=== PATIENT | female | born 1975 | race Caucasian/White ===

== ENCOUNTER 2018-01-27 13:15 | Inpatient (IN) | payer OTHER ==
[2018-01-27] VITALS (9 sets, daily range): BP systolic 94–121; BP diastolic 55–81
[~2018-01-27] VITALS: Ht 147.3 cm; Wt 54.0 kg
--- OUTSIDE RECORDS SUMMARY | 2018-01-27 13:17 | XMS REPORT ---
Author Author [facility] Address Unknown Phone Unavailable Care Team Providers Care Band Tier Name Role Phone MS KENNYQASIMARIANNE Unavailable Unavailable Problems This patient has no known problems. Allergies, Adverse Reactions, Alerts This patient has no known allergies or adverse reactions. Medications This patient has no known medications. Results Test Description Test Time Test Comments Text Results Atomic Results Result Comments EKG 2017-12-30 09:54:00 QRS Interval: 86msQT Interval: 331msQTC Interval: 454msP [place]: 52degQRS [place]: 12degT Wave [place]: 58degP-R Interval: 192msecRR Interval: 531msecHeart Rate: 113bpmI 40 [place]: 50degT 40 [place]: -5degST [place]: 89degEKG Severity: - ABNORMAL ECG -REPORT:Sinus tachycardiaREPORT:Probable left atrial enlargementREPORT:Low voltage, extremity and precordial leads EKG 2017-12-30 09:54:00 QRS Interval: 83msQT Interval: 366msQTC Interval: 569msP [place]: 51degQRS [place]: -9degT Wave [place]: 43degP-R Interval: 136msecRR Interval: 414msecHeart Rate: 145bpmI 40 [place]: 86degT 40 [place]: -18degST [place]: - 53degEKG Severity: - ABNORMAL ECG -REPORT:Sinus tachycardiaREPORT:Left atrial enlargementREPORT:Anterior infarct, age indeterminateREPORT:Prolonged QT interval US VENO EXT. UNILAT 2017-12-05 17:58:[address] [id number] IMAGING REPORTPatient Name : Margaux REY of Service: [id number]: 42 Sex: F Order #: [id number] Room: [facility] 2SDOB: 1975 X-Ray Number: [id number] Record Number: [id number] Hospital Number: [id number] Physician: RICO COXOrdering Physician: Dustin COX upper extremity venous Doppler.History:Extremity pain and swelling.Technique:Right upper extremity doppler assessment was performed withgrayscale, color Doppler and spectral waveform images.Findings:There is nonocclusive thrombus involving the proximal brachial vein.Cephalic vein was not visualized. There is a PICC line catheter in thebasilic vein.Impression:Nonocclusive venous thrombosis involving the proximal brachial vein.Electronically Signed By: Mc Back M.D., 2017 5:56 PMLegally authenticated by LINO Cassidy 2017-12-05 17:56:28 CHEST 1 VIEW PORTABLE 2017-12-05 08:02:[address] [id number] IMAGING REPORTPatient Name : [facility] Service: [id number]: 42 Sex: F Order #: [id number] Room: [facility] 2SDOB: 1975 X-Ray Number: [id number] Record Number: [id number] Hospital Number: [id number] Physician: Nicci COX Physician: Viraj THOMAS:5:06 AMHistory: Respiratory failure.Technique: Single AP chest projection.Comparison:December 03, 2017.Findings:Bilateral interstitial parenchymal infiltrates, worse on the left.Tracheostomy device and NG tube appear stable. Right-sided hemodialysiscatheter is stable.Impression:Slight worsening in the appearance of the chest when compared to prior.Electronically Signed By: Mc Back M.D., 12/05/2017 8:00 AMLegally authenticated by LINO Cassidy 2017-12-05 08: 00:41 CHEST 1 VIEW PORTABLE 2017-12-03 07:17:[address] [id number] IMAGING REPORTPatient Name : Margaux REY of Service: [id number]: 42 Sex: F Order #: [id number] Room: [facility] 2SDOB: 1975 X-Ray Number: [id number] Record Number: [id number] Hospital Number: [id number] Physician: MS KENNYONTHIOrdering Physician: Viraj THOMAS one view 12/03/2017 at 3:48 AMHistory: DKA, renal failureComparison: 12/02/2017Support devices are unchanged.Cardiac, hilar, and mediastinal structures are stable. Lungs still showmildly increased interstitial markings with patchy densities at the bases.Findings may be due to edema or pneumonia. No acute bony or soft tissueabnormalities are identified.Impression:No improvement.Electronically Signed By: Ulises Mendez M.D., 12/03/2017 7:14 AMLegally authenticated by DAVID PALAFOX 2017-12-03 07:14:54 UNILAT VENOUS FOR DVT 2017-12-02 13:21:00 [place] [id number] IMAGING REPORTPatient Name : [facility] of Service: [id number]: 42 Sex: F Order #: [id number] Room: [facility] 2SDOB: 1975 X-Ray Number: [id number] Record Number: [id number] Hospital Number: [id number] Physician: MS KENNYONTHIOrdering Physician: TONIA BLISS upper extremity venous Doppler.History:Upper extremity pain and swelling.Technique:Right upper extremity doppler assessment was performed withgrayscale, color Doppler and spectral waveform images.Findings:There is no evidence of DVT. There is normal flow compression and vascularaugmentation depicted. This includes the basilic vein which appears tocontain an IV catheter. There are no specific soft tissue defects depicted.Impression:Unremarkableright upper extremity venous Doppler. No evidence of DVT. Nosoft tissue defects.Electronically Signed By: Mc Back M.D., 12/02/2017 1:18 PMLegally authenticated by LINO Cassidy 12-02 13:18:52 CHEST 1 VIEW PORTABLE 2017-12-02 07:00:00 [place] [id number] IMAGING REPORTPatient Name : [facility] Service: [id number]: 42 Sex: F Order #: [id number] Room: 208/ A 2SDOB: 1975 X-Ray Number: [id number] Record Number: [id number] Hospital Number: [id number] Physician: RICO COXOrdering Physician: TONIA BLISS CChest one view 12/02/2017 at 3:49 AMHistory: DKAComparison: 11/29/2017A tracheostomy tube is now in place with tip at the clavicular head level.Other support devices are unchanged. No pneumothorax.Cardiac, hilar, and mediastinal structures are stable. Patchy densitiesthroughout the lungs may be due to edema, atelectasis or pneumonia. Minimalpleural effusions are suspected.No improvement.Electronically Signed By: Ulises Mendez M.D., 12/02/2017 6:57 AMLegally authenticated by DAVID PALAFOX 06:57:50 ECHO COMPLETE W/DOPPLER 2017-12-01 08:13:00 [facility] REPORTName: JOSE JUAN REY Study Date: 11/18/2017 10:50 AMMRN: [id number] Patient Location: 2S\S\208\S\ADOB: 1975 (M/d/yyyy) Gender: FemaleAge: 42 yrsHeight: 64 in Weight: 134 lbBSA: 1.6 [id number] For Study: NEW ONSET DKAProceduresA complete two-dimensional transthoracic echocardiogram was performed (2D,M-mode, Doppler and color flow Doppler).MMode/2D Measurements and CalculationsIVSd: 1.0 cm LVIDd: 4.2 cmIVSs: 1.6 cm LVIDs: 2.1 cmLVPWd: 0.98 cmLVPWs: 1.4 cm FS: 50.0 % % IVS thick: 62.8 %EDV(Teich): 79.5 mlESV(Teich) : 14.6 mlEF(Teich): 81.7 % SV(ich): 64.9 ml MV E-F slope: 10.6 cm/sec Ao root diam: 2.7 cm LVOT diam: 1.8 cmAo root area: 5.8 cm2 LVOT area: 2.4 cm2ACS: 1.6 cmLA dimension: 3.8 cm EDV(MOD-sp4): 34.7 ml SV(MOD-sp4): 28.4 mlESV(MOD-sp4): 6.3 mlEF(MOD-sp4): 81.7 %Doppler Measurements and CalculationsMV E max bre: 67.6 cm/ sec MV dec slope: 67.0 cm/sec2MV A max bre: 107.5 cm/sec MV dec time: 1.0 secMV E/A: 0.63 Ao V2 max: 247.2 cm/sec LV V1 max P.9 mmHgAo max P.4 mmHg LV V1 max: 222.8 cm/secAVA(V,D): 2.2 cm2 TR max bre: 277.6 cm/ sec RAP systole: 10.0 mmHgTR max P.8 mmHgRVSP(TR): 40.8 mmHgLeft VentricleThe left ventricle is normal in size. There is no thrombus. There is normalleft ventricular wall thickness. The left ventricular ejection fraction isnormal. Left ventricular systolic function is normal. Ejection Fraction=60-65%. The left ventricular wall motion is normal.Right VentricleThe right ventricle is normal size. There is normal right ventricular wallthickness. The right ventricular systolic function is normal.AtriaThe left atrial size is normal. Right atrial size is normal. The interatrialseptum is intact with no evidence for an atrial septal defect.Mitral ValveThe mitral valve leaflets appear normal. There is no evidence of stenosis,fluttering, or prolapse. There is no evidence of mitral valve prolapse.There is no mitral valve stenosis. There is no mitral regurgitation noted.Tricuspid ValveThe tricuspid valve is normal in structure and function. There is notricuspid stenosis. No tricuspid regurgitation.Aortic ValveThe aortic valve is normal in structure and function. The aortic valve istrileaflet. No hemodynamically significant valvular aortic stenosis. Noaortic regurgitation is present.Pulmonic ValveThe pulmonic valve is not well seen, but is grossly normal. There is nopulmonic valvular stenosis. There is no pulmonic valvular regurgitation.Great VesselsThe aortic root is normal size.Pericardium/ PleuralThere is no pericardial effusion. There is no pleural effusion.Interpretation SummaryLeft ventricular systolic function is normal.Ejection Fraction=60-65%. Reading Physician: Manas Dickson MD 12/01/2017 08:13Electronically signed by: AMOrdering Physician: SAMUEL COXHIReferring Physician: SAMUEL COXHIPerformed By: Xochitl Chavez, RCS, RVS CHEST 1 VIEW PORTABLE 2017-11-29 11:50:00 [place] [id number] IMAGING REPORTPatient Name : Margaux REY of Service: [id number]: 42 Sex: F Order #: [id number] Room: [facility] 2SDOB: 1975 X-Ray Number: [id number] Record Number: [id number] Hospital Number: [id number] Physician: RICO COXOrdergracia Physician: CATHY THOMASORY: Diabetic ketoacidosis. Hypertension. Shortness of breath.COMPARISON: 11/26/2017TECHNIQUE: Portable chest 1 viewFINDINGS:The life-support devices are unchanged. There is improved pulmonary edema.There is bibasilar atelectasis with more consolidative opacification of theleft lung base. There are small bilateral pleural effusions. There is nopneumothorax.IMPRESSION:1. Improved pulmonary edema.2. Bibasilar atelectasis and/or pneumonia, left greater than right.3. Small bilateral effusions.Electronically Signed By: Josh Chavarria M.D., 11/29/2017 11:48 AMLegally authenticated by DARRYL GUNN 2017-11-29 11:48:10 CHEST 1 VIEW PORTABLE 2017-11-26 11:03:00 [place] [id number] IMAGING REPORTPatient Name : Margaux REY of Service: [id number]: 42 Sex: F Order #: [id number] Room: [facility] 2SDOB: 1975 X-Ray Number: [id number] Record Number: [id number] Hospital Number: [id number] Physician: Nicci COX Physician: Karrie WATERS:10:45 AMHistory: Respiratory failure.Technique: Single AP chest projection.Comparison:November 25, 2017.Findings:There are patchy bilateral parenchymal infiltrates consistent withpulmonary edema or pneumonia. Tracheostomy device has replaced theendotracheal tube in the midline. Right-sided hemodialysis catheter isstable. The NG tube in the stomach remains.Impression:Worsening bilateral parenchymal infiltrates. Interval replacement of theendotracheal tube with a tracheostomy.Electronically Signed By: Mc Back M.D., 11/26/2017 11:01 AMLegally authenticated by LINO Cassidy 2017-11-26 11:01:05 CHEST 1 VIEW PORTABLE 2017-11-25 13:39:00 [place] [id number] IMAGING REPORTPatient Name : Margaux REY of Service: [id number]: 42 Sex: F Order #: [id number] Room: [facility] 2SDOB: 1975 X-Ray Number: [id number] Record Number: [id number] Hospital Number: [id number] Physician: RICO COXOrdering Physician: Gillian MCGOVERN one view: 1:15 PMHistory: Respiratory distressComparisons: YesterdayFindings:Coarsened interstitial markings, prominent central pulmonary vasculatureand cephalization of blood flow suggests vascular congestion in the properclinical setting. These changes are worsened compared to prior.Support lines and tubes are in stable position.Perihilar and basilar alveolar infiltrates likely represent alveolar edemaalthough correlate for fever and elevated white count.There is no definite pleural effusion or pneumothorax.Heart size is enlarged.Impression:Suspected vascular congestion which has worsened compared to prior..Electronically Signed By: Angel Rogers M.D., 11/25/2017 1:37 PMLegally authenticated by LIZ ZUNIGA 2017-11-25 13:37:15 CHEST 1 VIEW PORTABLE 2017-11-24 10:42:00 [place] [id number] IMAGING REPORTPatient Name : Margaux REY of Service: [id number]: 42 Sex: F Order #: [id number] Room: [facility] 2SDOB: 1975 X-Ray Number: [id number] Record Number: [id number] Hospital Number: [id number] Physician: Willy COXing Physician: Viraj THOMAS one view 11/24/2017 at 8:57 AMHistory: DKA, intubationComparison: 11/21/2017Support devices are unchanged.Cardiac, hilar, and mediastinal structures are stable. Lungs still showmildly increased interstitial markings with some airspace opacities at thebases. Findings have improved and may be due to residual edema orpneumonia. No acute bony or soft tissue abnormalities are identified.Impression:Improving pulmonary densities with mild residual, particularly at thebases.Electronically Signed By: Ulises Mendez M.D., 11/24/2017 10:39 AMLegally authenticated by DAVID PALAFOX 2017-11-24 10:39:56 ABDOMEN PORTABLE 2017-11-22 15:25:00 [place] [id number] IMAGING REPORTPatient Name : Margaux REY of Service: [id number]: 42 Sex: F Order #: [id number] Room: [facility] 2SDOB: 1975 X-Ray Number: [id number] Record Number: [id number] Hospital Number: [id number] Physician: Nicci COX Physician: SAMRA WATERS PORTABLE, 11/22/2017 3:16 PM: History: Abdominal pain. Diabetic ketoacidosis. Nasogastric tubeplacement.. .Comparison: None.Technique: 1 view abdomenFindings/Impression:The nasogastric tube terminates in the stomach. There is a Dickson catheterin the bladder. The bowel gas pattern is nonobstructive. There is gas andstool within the left colon. There are calcified phleboliths within thepelvis bilaterally.Electronically Signed By: Josh Chavarria M.D., 11/22/2017 3:22 PMLegally authenticated by DARRYL GUNN 2017-11-22 15:22:47 SPECIAL PROCEDURES 2017-11-22 09:16:[address] [id number] IMAGING REPORTPatient Name : Margaux REY of Service: [id number]: 42 Sex: F Order #: [id number] Room: [facility] 2SDOB: 1975 X-Ray Number: [id number] Record Number: [id number] Hospital Number: [id number] Physician: Nicci COX Physician: Duane GRULLON guided temporary hemodialysis catheter placement 11/20/2017 2:09PMHistory: Hemodialysis catheter placement. Acute renal failureTechnique/Findings:After obtaining written, informed consent the patient was placed in thesupine position on the ICU bed. The right neck was prepped and draped inthe usual sterile fashion. Preliminary sonographic assessment of the rightinternal jugular vein demonstrates a patent vessel, suitable for access.The overlying skin was anesthetized with 1% lidocaine and a smalldermatotomy made. Under real-time, concurrent sonographic guidance [id number] micropuncture needle was advanced into the internal jugular veinand an image saved to the patient's permanent medical record. WithSeldinger technique, the track was sequentially dilated. Next, a temporaryhemodialysis catheter was advanced over a guidewire into the SVC. Apostprocedure chest radiograph documents final catheter placement. Thecatheter aspirates and flushes appropriately and was subsequentlyhep-locked. The catheter was secured to the skin with a sterile dressing.The patient tolerated the procedure well and without complication.Sedation: Local 1% lidocaineEstimated blood loss: Less than 5 cc.Immediate complications: None.Impression:Technically successful ultrasound guided placement of a right internaljugular temporary hemodialysis catheter.Electronically Signed By: Josh Chavarria M.D., 11/20/2017 2:10 PMLegally authenticated by DARRYL GUNN 2017-11-20 14:10:16 CHEST 1 VIEW PORTABLE 2017-11-21 08:12:[address] [id number] IMAGING REPORTPatient Name : [facility]Grant [facility] of Service: [id number]: 42 Sex: F Order #: [id number] Room: [facility] 2SDOB: 1975 X-Ray Number: [id number] Record Number: [id number] Hospital Number: [id number] Physician: RICO COXOrdering Physician: CHARLINE ESCOBARHISTORY: ARDS. . Respiratory failure. Ventilator dependency.COMPARISON: 11/20/2017TECHNIQUE: Portable chest 1 viewFINDINGS:The life-support devices are unchanged. The cardiomediastinal silhouette isstable. There are evolving opacities throughout the lungs bilaterally,which appear progressive on the left. There is likely a small lefteffusion. There is no pneumothorax.IMPRESSION:Worsening left lung opacities with a small left effusion.Electronically Signed By: Josh Chavarria M.D., 11/21 8:09 AMLegally authenticated by DARRYL GUNN 2017-11-21 08:09:57
[2018-01-27 14:30] LABS: BASOPHILS # (AUTO) 0.1 (0.0-0.1); BASOPHILS % 0.9 % (0.0-1.0); EOSINOPHILS % 0.1 % (0.0-6.0); HEMATOCRIT 40.5 % (34.2-44.1); HEMOGLOBIN 13.3 g/dL (12.0-16.0); LYMPHOCYTES # (AUTO) 1.3 (1.0-3.2); LYMPHOCYTES % 12.4 % (18.0-39.1); MEAN CORPUSCULAR HEMOGLOBIN 30.6 pg (28-32); MEAN CORPUSCULAR HGB CONC 32.8 g/dL (31-35); MEAN CORPUSCULAR VOLUME 93.3 fL (81-99); MONOCYTES # (AUTO) 0.5 (0.2-0.8); MONOCYTES % 4.3 % (4.4-11.3); NEUTROPHILS # (AUTO) 8.5 (2.1-6.9); NEUTROPHILS % 81.9 % (38.7-80.0); PLATELET COUNT 345 x10e3/uL (140-360); RED BLOOD COUNT 4.34 x10e6/uL (3.6-5.1); RED CELL DISTRIBUTION WIDTH 17.1 % (11.7-14.4)
[2018-01-27 14:36] LABS: INR 1.03; PROTHROMBIN TIME 12.7 seconds (11.9-14.5)
[2018-01-27 14:37] LABS: PARTIAL THROMBOPLASTIN TIME 24.8 seconds (23.8-35.5)
[2018-01-27 14:47] LABS: ALANINE AMINOTRANSFERASE 7 IU/L (0-55); ALBUMIN 4.2 g/dL (3.5-5.0); ALBUMIN/GLOBULIN RATIO 1.1 (0.8-2.0); ALKALINE PHOSPHATASE 101 IU/L (40-150); ANION GAP 27.2 mmol/L (8-16); BLOOD UREA NITROGEN 13 mg/dL (7-26); BUN/CREATININE RATIO 10 (6-25); CALCIUM 9.3 mg/dL (8.4-10.2); CHLORIDE 102 mmol/L (98-107); CREATINE KINASE 89 IU/L (29-168); CREATININE, SERUM 1.32 mg/dL (0.57-1.11); EST GLOMERULAR FILTRATION RATE 44 ML/MIN (60-); SODIUM 132 mmol/L (136-145)
[2018-01-27 14:50] LABS: CARBON DIOXIDE 8 mmol/L (22-29)
[2018-01-27 14:51] LABS: GLUCOSE 525 mg/dL (74-118); POTASSIUM 5.2 mmol/L (3.5-5.1)
[2018-01-27 15:15] LABS: BILIRUBIN,URINE NEGATIVE (NEGATIVE); CLARITY,URINE CLEAR (CLEAR); COLOR,URINE YELLOW (YELLOW); KETONES,URINE 3+ (NEGATIVE); LEUKOCYTE ESTERASE ,URINE NEGATIVE (NEGATIVE); NITRITE,URINE NEGATIVE (NEGATIVE); PROTEIN,URINE DIPSTICK NEGATIVE (NEGATIVE); URINE UROBILINOGEN 0.2 mg/dL (0.2 - 1)
--- NOTE | 2018-01-27 15:25 | Diagnostic Imaging Report ---
PROCEDURE: A single AP view of the chest. COMPARISON: None. INDICATIONS: CHEST PAIN FINDINGS: Lines/tubes: None. Lungs: The lungs are well inflated and clear. There is no evidence of pneumonia or pulmonary edema. Pleura: There is no pleural effusion or pneumothorax. Heart and mediastinum: The heart and the mediastinum are unremarkable. Bones: No acute bony abnormality. IMPRESSION: No acute cardiopulmonary disease. Dictated by: Sergio Barth M.D. on 01/27/2018 at 15:25 Electronically approved by: Sergio Barth M.D. on 01/27/2018 at 15:25
[2018-01-27] MEDS ORDERED: SODIUM CHLORIDE 0.9% 1000ML 2,000 ML ONE (15:35)
[2018-01-27] MEDS: SODIUM CHLORIDE 0.9% 1000ML 1,000 ML IV SCH ×6 (15:35→22:56)
[2018-01-27 15:36] LABS: EPITHELIAL CELLS,URINE FEW /LPF
[2018-01-27] MEDS ORDERED: SODIUM CHLORIDE 0.9% 1000ML 1,000 ML IV SCH (15:47)
[2018-01-27] MEDS ORDERED: DEXTROSE 5%/0.45% SOD CHL 1,000 ML IV SCH (15:47)
[2018-01-27] MEDS ORDERED: DIATRIZOATE MEGL/DIATRIZOA SOD 30 ML BTL PO ONE (16:00)
[2018-01-27] MEDS ORDERED: POTASSIUM CHLORIDE 20MEQ/100ML 200 ML IV PRN ×2 (16:00)
[2018-01-27] MEDS ORDERED: INSULIN DETEMIR 100 UNIT/ML PEN SQ PRN ×2 (16:00)
[2018-01-27] MEDS ORDERED: MAGNESIUM SULF 1GRAM/DEXTROSE 100 ML IV PRN ×2 (16:00)
[2018-01-27] MEDS ORDERED: INSULIN REGULAR, HUMAN 3ML VL 100 UNIT in SODIUM CHLORIDE 0.9% 99 ML IV SCH ×2 (16:00)
[2018-01-27] MEDS ORDERED: HYDROMORPHONE 1MG/1ML INJ IV STA (16:29)
[2018-01-27] MEDS ORDERED: ONDANSETRON HCL 4 MG ORAL DISINTEGRATING TAB PO ONE (16:30)
[2018-01-27] MEDS ORDERED: ONDANSETRON HCL INJ 2 MG/ML VIAL IV PRN (18:00)
--- NOTE | 2018-01-27 18:27 | Diagnostic Imaging Report ---
PROCEDURE: CT ABDOMEN AND PELVIS WITHOUT CONTRAST TECHNIQUE: The abdomen and pelvis were scanned utilizing a multidetector helical scanner from the diaphragm to the lesser trochanter after the oral administration of Gastrografin mixture (however, patient ingested less than 200 mL). No IV contrast was administered because of physician request secondary to DKA. Coronal and sagittal multiplanar reformations were obtained. COMPARISON: None. INDICATIONS: MID ABDOMINAL PAIN FINDINGS: ABSENCE OF INTRAVENOUS CONTRAST DECREASES SENSITIVITY FOR DETECTION OF FOCAL LESIONS AND VASCULAR PATHOLOGY. LOWER THORAX: Normal. HEPATOBILIARY: No focal hepatic lesions. No biliary ductal dilatation. SPLEEN: No splenomegaly. PANCREAS: No focal masses or ductal dilatation. ADRENALS: No adrenal nodules. KIDNEYS/URETERS: No hydronephrosis, stones, or solid mass lesions. PELVIC ORGANS/BLADDER: Unremarkable. PERITONEUM / RETROPERITONEUM: No free air or fluid. LYMPH NODES: No lymphadenopathy. VESSELS: Mild atherosclerotic and secretions in the aorta. GI TRACT: No distention or wall thickening. Moderate amount stool in the colon. No bowel obstruction. BONES AND SOFT TISSUES: Unremarkable. IMPRESSION: 1. Almost no visualized positive oral contrast. 2. Unremarkable abdomen and pelvis. Dictated by: Sergio Barth M.D. on 01/27/2018 at 18:27 Electronically approved by: Sergio Barth M.D. on 01/27/2018 at 18:27
[2018-01-27 18:50] LABS: ANION GAP 20.8 mmol/L (8-16); CALCIUM 8.4 mg/dL (8.4-10.2); CREATININE, SERUM 1.12 mg/dL (0.57-1.11); MAGNESIUM 1.6 MG/DL (1.3-2.1); POTASSIUM 4.8 mmol/L (3.5-5.1)
[2018-01-27] MEDS ORDERED: MAGNESIUM SULF 1GRAM/DEXTROSE 100 ML IV ONE (19:10)
[2018-01-27 19:17] LABS: ABG PCO2 20 mmHg (41-51); ABG PH 7.11 (7.31-7.41); ABG PO2 114 mmHg (80-105)
[2018-01-27 19:18] LABS: ABG HCO3 6 mmol/L (23-28)
[2018-01-27] MEDS ORDERED: NICOTINE 21 MG/EA PATCH ONE (19:39)
[2018-01-27] MEDS: NICOTINE 21 MG/EA PATCH TOP SCH (19:52)
[2018-01-27] MEDS: DEXTROSE 5%/0.45% SOD CHL 1,000 ML IV SCH (20:15)
--- NOTE | 2018-01-27 21:17 | History and Physical ---
HISTORY OF PRESENT ILLNESS: A 42-year-old female with past medical history positive for poorly controlled diabetes, seizure disorder, nicotine dependence, heavy smoker. Patient came here with abdominal pain. She was found to have very high blood sugar with metabolic acidosis. She was found to be in diabetic ketoacidosis. Therefore, she is going to be admitted to the hospital. Insulin drip and IV fluids have been started and the diabetes ketoacidosis protocol has been implemented. REVIEW OF SYSTEMS: CARDIOVASCULAR: No chest pain or palpitation. RESPIRATORY: No shortness of breath. No cough. GASTROINTESTINAL: She complains of nausea, vomiting, diarrhea and abdominal pain. GENITOURINARY: No frequency and no dysuria. ALLERGIES: NOT ALLERGIC TO ANYTHING EXCEPT BETADINE. PAST MEDICAL HISTORY: Positive for poorly controlled diabetes, seizure disorder, nicotine dependence. SOCIAL HISTORY: She smokes and she used to drink until recently. PHYSICAL EXAMINATION: HEART: Shows regular rhythm. No murmurs. No extra sounds. LUNGS: Clear bilaterally. ABDOMEN: Soft. EXTREMITIES: Show no evidence of cyanosis, edema or trauma. LABORATORY DATA: BMP with sodium 135, potassium 4.8, chloride 110. CO2 9, creatinine 1.12. BUN 12, glucose 282. On the CBC white blood count 10.4, hemoglobin 13.3, hematocrit 40.5, platelet count 345,000. PT 12.7. INR 1.03. PTT 24.8. AST 11, ALT 7. Total bilirubin 0.2, alkaline phosphatase 101. FINAL IMPRESSION: 1. Diabetic ketoacidosis. 2. Abdominal pain. 3. Nausea. 4. Metabolic acidosis. 5. Seizure disorder. 6. Nicotine dependence. PLAN OF TREATMENT: Continue insulin drip. Continue monitoring BUN, creatinine and electrolytes. Continue with the insulin protocol and diabetic ketoacidosis protocol. Going to start her on NicoDerm patch 21 mg daily. Zofran 4 mg IV q.4 h. as needed. Toradol 50 mg q.6 h. as needed for severe pain. Dr. Hdez has been consulted from the endocrinology point of view. We are going to continue the seizure medications also. She is going to be admitted to ICU. All questions have been answered. TIME SPENT: Around 50 minutes. Job#: [id number]
[2018-01-27] MEDS: KETOROLAC TROMETHAMINE 30 MG/ML VIAL IV PRN (21:47)
[2018-01-27] MEDS ORDERED: QUETIAPINE FUM100 MG PO ×2 (21:56→22:05)
[2018-01-27] MEDS ORDERED: METFORMIN HCL500 MG PO ×2 (21:56→22:05)
[2018-01-27] MEDS ORDERED: GLIMEPIRIDE2 MG PO (22:05)
[2018-01-27] MEDS ORDERED: LEVETIRACETAM500 MG PO (22:05)
[2018-01-27] MEDS ORDERED: MAGNESIUM OXID400 MG PO (22:05)
[2018-01-27] MEDS ORDERED: DILTIAZEM HCL60 MG PO (22:05)
[2018-01-27] MEDS ORDERED: ASPIR 8181 MG PO (22:05)
[2018-01-27 22:53] LABS: BLOOD UREA NITROGEN 10 mg/dL (7-26); BUN/CREATININE RATIO 12 (6-25); CALCIUM 8.7 mg/dL (8.4-10.2); CARBON DIOXIDE 17 mmol/L (22-29); CHLORIDE 113 mmol/L (98-107); CREATININE, SERUM 0.86 mg/dL (0.57-1.11); EST GLOMERULAR FILTRATION RATE > 60 ML/MIN (60-); MAGNESIUM 1.8 MG/DL (1.3-2.1); SODIUM 137 mmol/L (136-145)
[2018-01-27 23:09] LABS: GLUCOSE 57 mg/dL (74-118)
[2018-01-28] VITALS (55 sets, daily range): BP systolic 87–153; BP diastolic 51–116
[2018-01-28] MEDS: DEXTROSE 5%/0.45% SOD CHL 1,000 ML IV SCH ×3 (02:00→22:01)
[2018-01-28] MEDS: SODIUM CHLORIDE 0.9% 1000ML 1,000 ML IV SCH ×5 (04:00→23:47)
[2018-01-28 07:03] LABS: ANION GAP 13.9 mmol/L (8-16); BLOOD UREA NITROGEN 9 mg/dL (7-26); BUN/CREATININE RATIO 10 (6-25); CALCIUM 8.6 mg/dL (8.4-10.2); CARBON DIOXIDE 13 mmol/L (22-29); CHLORIDE 110 mmol/L (98-107); EST GLOMERULAR FILTRATION RATE > 60 ML/MIN (60-); GLUCOSE 227 mg/dL (74-118); MAGNESIUM 1.6 MG/DL (1.3-2.1); POTASSIUM 3.9 mmol/L (3.5-5.1); SODIUM 133 mmol/L (136-145)
[2018-01-28] MEDS: NICOTINE 21 MG/EA PATCH TOP SCH (10:28)
[2018-01-28 10:41] LABS: ANION GAP 7.7 mmol/L (8-16); BLOOD UREA NITROGEN 8 mg/dL (7-26); BUN/CREATININE RATIO 10 (6-25); CALCIUM 8.7 mg/dL (8.4-10.2); CARBON DIOXIDE 18 mmol/L (22-29); CHLORIDE 113 mmol/L (98-107); CREATININE, SERUM 0.81 mg/dL (0.57-1.11); EST GLOMERULAR FILTRATION RATE > 60 ML/MIN (60-); GLUCOSE 106 mg/dL (74-118); MAGNESIUM 1.6 MG/DL (1.3-2.1); POTASSIUM 3.7 mmol/L (3.5-5.1); SODIUM 135 mmol/L (136-145)
[2018-01-28] MEDS ORDERED: INSULIN LISPRO 100 UNIT/1 ML 3ML VIAL SQ SCH (13:45)
[2018-01-28] MEDS: KETOROLAC TROMETHAMINE 30 MG/ML VIAL IV PRN ×2 (13:52→19:33)
[2018-01-28 13:55] LABS: FREE T4 (FREE THYROXINE) 0.75 ng/dL (0.9-1.8); THYROID STIMULATING HORMONE 0.865 uIU/mL (0.350-4.940)
--- NOTE | 2018-01-28 15:07 | Consultation ---
DATE OF CONSULTATION: January 28, 2018 ENDOCRINE CONSULTATION This is a patient of Dr. Griffiths. Thank you very much for referring this patient. This is a 42-year-old white female who is referred to me for evaluation of uncontrolled diabetes mellitus and diabetic ketoacidosis. Most of the history is available from the chart and some from the patient. The patient reportedly is a known diabetic for almost 3 years and has been on regular insulin only along with metformin. She was, in fact, admitted at [facility] about 5 months back when she had a tracheostomy done, which has sealed off at this time. Patient has history of seizure disorder. She is a chronic smoker and has history of hypertension. This time the patient came to the hospital with history of nausea and vomiting. Her blood sugar was found to be 525. Anion gap was 27.2. After the IV fluids and insulin drip, her anion gap has improved. PHYSICAL EXAMINATION GENERAL: Today, the patient is alert, awake, a little bit apprehensive at times. She has slightly slurred speech. VITALS: Her heart rate is around 68. Blood pressure 120/80 mmHg. HEENT: Essentially unremarkable. Thyroid is palpable. Clinically she is near euthyroid. CHEST: Bilateral vesicular breathing. She has mild bronchospasm. Both 1st and 2nd heart sounds. There is no 3rd or 4th heart sound. Ejection systolic murmur, grade 2/6. NEURO: Patient has evidence of diabetic sensory neuropathy in both lower extremities. ABDOMEN: Epigastric tenderness. CLINICAL IMPRESSION 1. Diabetes mellitus, probably type 2. 2. Diabetic ketoacidosis. 3. Seizure disorder. 4. Chronic smoker. 5. Noncompliance. The plan at this time is to slowly taper off the insulin drip. Start her on subcutaneous insulin. Monitor her blood sugars, and diet has been advanced. Thanks for referring this patient. I will be following this patient with you. Job#: [id number] FREDO MCFARLAND
[2018-01-28] MEDS: INSULIN LISPRO 100 UNIT/1 ML 3ML VIAL SQ SCH ×3 (17:36→20:52)
[2018-01-28] MEDS ORDERED: NICOTINE 21 MG/EA PATCH TOP SCH (21:00)
[2018-01-28] MEDS: INSULIN DETEMIR 100 UNIT/ML PEN SQ SCH (21:30)
[2018-01-29] VITALS (7 sets, daily range): BP systolic 116–151; BP diastolic 70–99
[2018-01-29] MEDS: SODIUM CHLORIDE 0.9% 1000ML 1,000 ML IV SCH ×3 (03:47→11:47)
[2018-01-29] MEDS: INSULIN LISPRO 100 UNIT/1 ML 3ML VIAL SQ SCH ×7 (07:30→20:48)
[2018-01-29] MEDS: DEXTROSE 5%/0.45% SOD CHL 1,000 ML IV SCH ×2 (09:51→18:22)
[2018-01-29] MEDS: NICOTINE 21 MG/EA PATCH TOP SCH (09:55)
[2018-01-29] MEDS ORDERED: LEVETIRACETAM 500MG/5ML VIAL 500 MG in SODIUM CHLORIDE 0.9% 100 ML 100 ML IV ONE (11:15)
[2018-01-29] MEDS: QUETIAPINE FUMARATE 100 MG TAB PO SCH ×2 (13:54→21:49)
--- NOTE | 2018-01-29 15:18 | Progress Note ---
DATE: ADDENDUM Also, patient is complaining of constipation. We are going to add Colace 100 mg twice a day. Job#: [id number] MEREDITH
--- NOTE | 2018-01-29 15:23 | Progress Note ---
DATE: INTERNAL MEDICINE PROGRESS NOTE SUBJECTIVE: Patient had a seizure today. Apparently, she was taking Keppra at home, but she did not remember the dose or the medication name. So, we will start Keppra today. We gave an IV loaded dose and patient doing better now. Apparently, she also had an episode of blood in the stools, so we are going to do stool guaiac. We are going to get a gastroenterology consult also. PHYSICAL EXAM: VITAL SIGNS: Blood pressure 136/85, temperature 97.2, heart rate 74 per minute, respiratory rate is 18 per minute, oxygen saturation 98%. HEART: Regular rhythm. Normal S1, S2 sounds. LUNGS: Clear bilaterally. ABDOMEN: Soft. EXTREMITIES: Show no evidence of cyanosis, edema, or trauma. LABORATORY DATA: On the BMP, sodium 135, potassium 3.7, chloride 113, CO2 of 18, BUN 8, creatinine 0.81, glucose 106. On the CBC, white blood count 10.4, hemoglobin 13.3, hematocrit 40.5, platelet count 345,000. PT 12.7, INR 1.03, PTT 24.8. AST 11, ALT 7, total bilirubin 0.2, alkaline phosphatase 101. FINAL IMPRESSION 1. Episode of diabetic ketoacidosis, which is resolved. 2. Seizure disorder. 3. Hypertension. 4. Tobacco addiction. PLAN OF TREATMENT: Continue monitoring blood sugar a.c. and h.s. Continue Keppra 500 mg twice a day. Continue Toradol 15 mg q.6 hours IV as needed for pain. We are going to continue monitoring blood sugar a.c. and h.s. Humalog 8 units before meals. Seroquel 50 mg 3 times a day. Nicotine 21 mg daily patch. Levemir 12 units at bedtime. Magnesium oxide 400 mg twice a day. Aspirin 81 mg daily. Metformin 500 mg twice a day. Continue with Cardizem 90 mg twice a day, glimepiride 2 mg daily, and diabetic diet. We are going to get a neurology consult. Job#: [id number] VAS
[2018-01-29] MEDS ORDERED: LEVETIRACETAM 500 MG TAB PO SCH (17:00)
[2018-01-29] MEDS: MAGNESIUM OXIDE 400 MG TAB PO SCH (17:48)
[2018-01-29] MEDS: DOCUSATE SODIUM 100 MG CAP PO SCH (17:48)
[2018-01-29] MEDS: LEVETIRACETAM 500 MG TAB PO SCH (17:48)
[2018-01-29] MEDS: DILTIAZEM HCL 60 MG TAB PO SCH (17:48)
[2018-01-29] MEDS: METFORMIN HCL 500 MG TAB PO SCH (17:49)
--- NOTE | 2018-01-29 20:27 | Consultation ---
DATE OF CONSULTATION: January 29, 2018 NEUROLOGY PROGRESS NOTE HISTORY OF PRESENT ILLNESS: Ms. Chan is 42-year-old, [id number] woman with past medical history significant for hypertension, hyperlipidemia, insulin-dependent diabetes mellitus type 2, and known seizure disorder who experienced a seizure at approximately 10 a.m. on January 29, 2018. The seizure is described as follows: The patient's nurse, Ana, was alerted by a equipment maintenance technician to come to the patient's room as soon as possible. When the nurse arrived in the patient's room approximately 1-2 minutes later, the patient was sitting in bed with her eyes open and drooling. The patient appeared confused and disoriented. This behavior lasted for several minutes before the patient returned to her neurological baseline. Ms. Chan's nurse did not witness generalized tonic or generalized tonic-clonic activity. Once the patient returned to her neurological baseline, the admitting attending, Dr. Griffiths, was informed of the event. He ordered Keppra 500 mg intravenously once and requested a neurology consultation. Ms. Chan and her report the patient was diagnosed with epilepsy approximately 22 years ago. Ms. Chan and her describe her seizures as follows: Initially, the patient stares forward unresponsive. This evolves into generalized tonic-clonic activity. There has never been witnessed tongue biting associated with the tonic-clonic activity. There is occasional bladder incontinence. The seizure activity lasts for approximately 1-2 minutes. Afterwards, the patient experiences a postictal phase characterized by confusion and tiredness. This lasts for approximately 10 to 15 minutes. Ms. Chan was treated with Dilantin 300 mg by mouth at bedtime for approximately 22 years. This medication was discontinued for unknown reasons on November 17, 2017 when the patient was hospitalized for diabetic ketoacidosis. It was replaced with Keppra 1000 mg by mouth twice daily. Ms. Chan endorses compliance with this medication, and does not report side effects associated with taking the medication. The patient does not endorse recent sleep deprivation, infection, or use of prescription or recreational stimulants. Ms. Chan is not under the care of a neurologist. Her primary care physician prescribes her antiepileptic medications. Prior to this mornings event, her last seizure was in October 2017. The patient was admitted to [facility] on January 27, 2018 in diabetic ketoacidosis. She was initially admitted to the intensive care unit, then transferred to the floor on January 28, 2018. During her hospitalization, Ms. Chan has not received her home medication of Keppra 1000 mg by mouth twice daily. REVIEW OF SYSTEMS: Weight loss of 30 pounds since November 2017, chest pain, productive cough, abdominal pain, nausea, constipation, change in thirst, mood swings, irritability, confusion, numbness of the feet, seizures, low back pain. Otherwise, the 12-point review of systems was negative. PAST MEDICAL HISTORY: Hypertension, hyperlipidemia, insulin-dependent diabetes mellitus type 2, multiple prior urinary tract infections, epilepsy. PAST SURGICAL HISTORY: Tracheostomy. PAST HOSPITALIZATIONS: Multiple hospitalizations for diabetic ketoacidosis. FAMILY HISTORY: The patient's paternal and maternal grandparents are . Their medical histories are unknown. The patient's father is alive and has leukemia. The patient's mother is from emphysema. The patient has 2 older brothers as well as a twin brother. All are alive and healthy. The patient does not have children. SOCIAL HISTORY: The patient is . She completed school through the 11th grade. Ms. Chan is not employed at this time. The patient does report current tobacco use. She has smoked one pack of cigarettes per day for the past 30 years. Ms. Chan and her do report a history of heavy alcohol use. She quit drinking alcohol on November 17, 2017. The patient endorses a remote history of marijuana use. HOME MEDICATIONS: Aspirin 81 mg per mouth daily, diltiazem 90 mg by mouth twice daily, Glimepiride 2 mg by mouth daily, levetiracetam 1000 mg by mouth twice daily, magnesium oxide 400 mg by mouth twice daily, metformin 500 mg by mouth twice daily, Seroquel 50 mg by mouth 3 times daily. ALLERGIES: THE PATIENT REPORTS A POSSIBLE ALLERGY TO BETADINE. NO KNOWN FOOD ALLERGIES. NO KNOWN ALLERGY TO LATEX. NO KNOWN ALLERGY TO CONTRAST MATERIALS. PHYSICAL EXAMINATION VITAL SIGNS: Height 58 inches, weight 119.5 pounds, BMI 25.0 kg per meter squared, blood pressure 136/85 mmHg, pulse 74 beats per minute, respiratory rate 18 breaths per minute, oxygen saturation 98% on room air. GENERAL: The patient is awake and alert. Does not appear distressed. HEENT: Normocephalic and atraumatic. Pupils are equal, round and reactive to light. Moist mucous membranes. NECK: Supple. No appreciable thyromegaly. No appreciable carotid bruits. CARDIOVASCULAR: S1 and S2. Regular rate and rhythm. No murmurs, rubs or gallops. RESPIRATORY: Clear to auscultation bilaterally. No wheezes, rhonchi or rales. EXTREMITIES: The skin is warm and dry. No clubbing, cyanosis or edema. The posterior tibial and dorsalis pedis pulses are 2+ and symmetric. SKIN: No rashes or lesions. NEUROLOGIC: Memory/attention: The patient is awake and alert. Oriented to person, place, time, and situation. CRANIAL NERVES: Cranial nerve I: Not tested. Cranial nerves II, III, IV, : Pupils are equal and round, react briskly to light (from 4 mm to 2 mm). Extraocular movements intact. No nystagmus. Cranial nerve V: Sensation to light touch and pinprick is intact in the bilateral V1 through V3 distributions. Strength of the temporalis and masseter muscles is within normal limits. Cranial nerve VII: The face is symmetric, as are all facial movements. Strength is within normal limits. Cranial nerve VIII: Hearing is intact to finger rub bilaterally. Cranial nerve IX and X: The soft palate elevates equally and symmetrically. Cranial nerve XI: Normal strength of the bilateral sternocleidomastoid and trapezius muscles. Cranial nerve XII: The tongue protrudes midline and moves symmetrically from side to side. STRENGTH: Bulk is normal, and strength is 5/5 in the bilateral deltoids, biceps, triceps, wrist flexors and extensors, finger flexors and extensors, intrinsic hand muscles, hip flexors, knee flexors and extensors, ankle dorsiflexion and plantar flexion, and intrinsic foot muscles. Tone is normal. DTRs: Deep tendon reflexes are 1+ and symmetric at the triceps, biceps, brachioradialis, patellas, and Achilles. Plantar responses are flexor bilaterally. SENSATION: Intact to light touch and pinprick in both arms and both legs. CEREBELLAR: Rdqpds-ufqj-ilbufx and heel-lassiter movements are intact without dysmetria or other impairment. Rapid alternating movements are intact. GAIT: Deferred. SPEECH: Spontaneous speech is normal without appreciable dysarthria or aphasia. Repetition is intact. INVOLUNTARY MOVEMENTS: None. PRONATOR DRIFT: None. LABORATORY DATA: Serum glucoses in the past 24 hours have ranged from 107 to 243. There is no other recent laboratory data available. IMAGING: Chest x-ray on 01/27/2018: No acute cardiopulmonary disease. CT of abdomen/pelvis 01/27/2018: Almost no visualized positive oral contrast. Unremarkable abdomen and pelvis. ASSESSMENT AND PLAN: Ms. Chan is a 42-year-old, [id number] woman with a past medical history significant for hypertension, hyperlipidemia, insulin-dependent diabetes mellitus type 2 and known seizure disorder admitted to [facility] on January 27, 2018 in diabetic ketoacidosis. The patient was initially admitted to the intensive care unit, then transferred to the floor on January 28, 2018. For the first 2 days of her hospitalization, the patient did not receive her home medication of Keppra 1000 mg by mouth twice daily. The patient's neurological examination is nonfocal. Her laboratory data and diagnostic studies have been reviewed and are documented above. Ms. Andress seizure activity this morning was due to medication withdrawal. She was without her antiepileptic medication for more than 48 hours, leading to a breakthrough seizure. RECOMMENDATIONS: 1. Resume treatment with the patient's home antiseizure medication of Keppra 1000 mg by mouth twice daily. 2. Seizure precautions were discussed in detail with the patient and her . The patient was advised to sleep 7-8 hours per 24 hour period. She was advised to restrict alcohol consumption to 2 ounces or less per 24 hour period. Ms. Chan was instructed to avoid prescription and recreational stimulants. She was informed infectious illness will lower the seizure threshold, possibly resulting in seizure activity. The patient was advised not to work at any height above ground, climb up ladders, swim alone, etc. Essentially, the patient was advised to have someone with her during any activity where she could injure herself or someone else should she have a seizure. Lastly, the patient was advised of [place] state law restricting the patient from driving until she is seizure free for the next 3 months. Ms. Chan and her were told it is the patient's responsibility to report this most recent seizure to the Department of Public Safety. Thank you for this consultation. There are no other recommendations from the neurology service. Please contact me if any questions or concerns arise with this patient. TIME SPENT: 70 minutes. Job#: [id number]
[2018-01-29] MEDS: INSULIN DETEMIR 100 UNIT/ML PEN SQ SCH (21:49)
[2018-01-29] MEDS: KETOROLAC TROMETHAMINE 30 MG/ML VIAL IV PRN (21:55)
[2018-01-30] VITALS (7 sets, daily range): BP systolic 94–127; BP diastolic 54–81
[2018-01-30] MEDS: DEXTROSE 5%/0.45% SOD CHL 1,000 ML IV SCH ×2 (05:06→12:51)
[2018-01-30] MEDS: INSULIN LISPRO 100 UNIT/1 ML 3ML VIAL SQ SCH ×6 (07:30→21:35)
[2018-01-30] MEDS ORDERED: ASPIRIN 81 MG CHEW TAB PO SCH (09:00)
[2018-01-30] MEDS ORDERED: GLIMEPIRIDE 2 MG TAB PO SCH (09:00)
[2018-01-30] MEDS: MAGNESIUM OXIDE 400 MG TAB PO SCH ×2 (09:05→16:59)
[2018-01-30] MEDS: QUETIAPINE FUMARATE 100 MG TAB PO SCH ×3 (09:05→21:30)
[2018-01-30] MEDS: DILTIAZEM HCL 60 MG TAB PO SCH ×2 (09:05→16:59)
[2018-01-30] MEDS: METFORMIN HCL 500 MG TAB PO SCH ×2 (09:05→16:59)
[2018-01-30] MEDS: LEVETIRACETAM 500 MG TAB PO SCH ×2 (09:05→16:59)
[2018-01-30] MEDS: NICOTINE 21 MG/EA PATCH TOP SCH (09:05)
[2018-01-30] MEDS: DOCUSATE SODIUM 100 MG CAP PO SCH ×2 (09:05→16:59)
[2018-01-30] MEDS ORDERED: INSULIN LISPRO 100 UNIT/1 ML 3ML VIAL SQ SCH (16:30)
--- NOTE | 2018-01-30 18:13 | Discharge Summary ---
HISTORY OF PRESENT ILLNESS: A 42-year-old female who had a past medical history positive mainly for diabetes, history of seizure disorder, nicotine dependency, heavy smoker, came here with abdominal pain. She was found to have very high blood sugar with metabolic acidosis. She was found to be in diabetes ketoacidosis. She was admitted with an insulin drip. Patient was finally removed from insulin drip and started on regimen of Levemir and Humalog. She is going home today. PHYSICAL EXAM: VITAL SIGNS: Blood pressure 112/72, temperature 96.9, heart rate 76 per minute, respiratory rate is 18 per minute, oxygen saturation 98%. HEART: Regular rhythm. No murmur. No extra sounds. LUNGS: Clear bilaterally. ABDOMEN: Soft. EXTREMITIES: Show no evidence of cyanosis, edema or trauma. LABORATORY DATA: On the BMP, sodium 135, potassium 3.7, chloride 113, CO2 18, BUN 9, creatinine 0.81, glucose 106. On the CBC white blood count 10.4, hemoglobin 13.3, hematocrit 40.5, platelet count 345,000. PT 12.7, INR 1.03, PTT 24.8. AST 11, ALT 7, total bilirubin 0.2, alkaline phosphatase 101. FINAL IMPRESSION 1. Diabetic ketoacidosis which is resolved. 2. Seizure disorder. 3. Hypertension. 4. History of smoking. PLAN OF TREATMENT: We are going to discharge the patient on Keppra. She is taking 1000 mg twice a day. Continue Levemir 12 units at bedtime. Continue metformin 500 mg twice a day. Continue Humalog 8 units before meals. Continue aspirin 81 mg daily. Seroquel 50 mg 3 times a day. NicoDerm patch 21 mg daily. Continue monitoring blood sugar a.c. and nightly. Diltiazem 90 mg twice a day. Colace 100 mg twice a day. Humalog ____ 10 units before meals. Follow up with primary care physician in a week. Continue 1800 calorie ADA diet. WALDEMAR DEAN MD Job#: [id number]
[2018-01-30] MEDS: INSULIN DETEMIR 100 UNIT/ML PEN SQ SCH (21:30)
== END 2018-01-30 23:50 | disposition home or self-care (01) | DRG 639 ==
LOC: ER 13:15 → ERHOLD 18:13 → ICU 20:37 → MED/SURG 01-28 22:00
PROVIDERS: ADMIT Internal Medicine; ATTEND Internal Medicine
DX: E13.10 Other specified diabetes mellitus with ketoacidosis without coma (principal); G40.409 Other generalized epilepsy and epileptic syndromes, not intractable, without status epilepticus; I10 Essential (primary) hypertension; Z79.4 Long term (current) use of insulin; G40.909 Epilepsy, unspecified, not intractable, without status epilepticus; F17.210 Nicotine dependence, cigarettes, uncomplicated; Z91.19 Patient's noncompliance with other medical treatment and regimen; E11.40 Type 2 diabetes mellitus with diabetic neuropathy, unspecified
CPT/HCPCS: 36415; 36600; 71045; 74176; 80048; 80053; 81001; 82010; 82550; 82553; 82805; 82948; 83036; 83605; 83735; 83880; 84439; 84443; 84484; 84702; 85025; 85610; 85730; 87040; 93005; 96366; 96372; 96376; 99284; J1170; J1885; J2405; J3475; J7030; J7050